=== PATIENT | male | born 1985 | race African-American/Black ===

== ENCOUNTER 2016-06-19 02:42 | Inpatient (IN) | payer OTHER ==
[2016-06-19] VITALS (8 sets, daily range): BP systolic 126–148; BP diastolic 71–93; PULSE 61–95; RESP 16–22; TEMP 97.8–100.7; O2SAT 95–99
[~2016-06-19] VITALS: Ht 175.3 cm; Wt 91.0 kg
[2016-06-19] MEDS ORDERED: SODIUM CHLOR 0.9% 1000 ML INJ 1,000 ML IV SCH (02:54)
[2016-06-19] MEDS ORDERED: SODIUM CHLORIDE 0.9% FLUSH 5 ML FLUSH IVF PRN (03:00)
[2016-06-19] MEDS ORDERED: MORPHINE SULFATE 4 MG/ML INJ IV PUSH ONE (03:00)
[2016-06-19] MEDS ORDERED: ONDANSETRON HCL 4 MG/2 ML VIAL IVP ONE (03:00)
[2016-06-19 03:16] LABS: AUTOMATED NEUTROPHIL # 14.7 TH/MM3 (1.8-7.7); BASOPHIL % 0.3 % (0.0-2.0); EOSINOPHIL % 0.1 % (0.0-4.0); HEMATOCRIT 39.9 % (39.0-51.0); HEMO FLAGS DIFF FINAL; LYMPH % 4.6 % (9.0-44.0); LYMPHOCYTE # 0.8 TH/MM3 (1.0-4.8); MEAN CELL VOLUME 85.2 FL (80.0-100.0); MEAN CORPUSCULAR HEMOGLOBIN 28.7 PG (27.0-34.0); MEAN CORPUSCULAR HGB CONC 33.7 % (32.0-36.0); MONO % 4.6 % (0.0-8.0); NEUT % 90.4 % (16.0-70.0); PLATELET COUNT 247 TH/MM3 (150-450); RED BLOOD COUNT 4.69 MIL/MM3 (4.50-5.90); RED CELL DISTRIBUTION WIDTH 12.7 % (11.6-17.2); WHITE BLOOD COUNT 16.3 TH/MM3 (4.0-11.0)
[2016-06-19 03:26] LABS: APTT (PATIENT) 27.7 SEC (24.3-30.1); PROTHROMBIN TIME - PATIENT 11.1 SEC (9.8-11.6)
[2016-06-19 03:32] LABS: ALT (GPT) 65 U/L (12-78); ANION GAP 8 MEQ/L (5-15); AST (GOT) 37 U/L (15-37); BICARBONATE 27.4 MEQ/L (21.0-32.0); BLOOD UREA NITROGEN 10 MG/DL (7-18); CHLORIDE 99 MEQ/L (98-107); GLOMERULAR FILTRATION RATE 143 ML/MIN (>89); POTASSIUM 4.3 MEQ/L (3.5-5.1); SODIUM (NA) 134 MEQ/L (136-145)
[2016-06-19 03:33] LABS: ALKALINE PHOSPHATASE 95 U/L (45-117); TOTAL BILIRUBIN ADULT 0.6 MG/DL (0.2-1.0)
[2016-06-19] MEDS ORDERED: IOHEXOL 350 MG/ML 10 ML VIAL (for RAD DIAG) IV ONE (03:43)
--- NOTE | 2016-06-19 04:16 | RADRPT ---
EXAM DATE/TIME: 06/19/2016 03:41 [place] COMPARISON: No previous studies available for comparison. INDICATIONS : Right sided abdominal pain X 2 days. IV CONTRAST: 96 cc Omnipaque 350 (iohexol) IV ORAL CONTRAST: No oral contrast ingested. RADIATION DOSE: 11.51 CTDIvol (mGy) MEDICAL HISTORY : None SURGICAL HISTORY : None. ENCOUNTER: Initial ACUITY: 2 days PAIN SCALE: 6/10 LOCATION: abdomen TECHNIQUE: Volumetric scanning of the abdomen and pelvis was performed. Using automated exposure control and ad justment of the mA and/or kV according to patient size, radiation dose was kept as low as reasonably achievable to obtain optimal diagnostic quality images. FINDINGS: LOWER LUNGS: The visualized lower lungs are clear. LIVER: Homogeneous density without lesion. There is no dilation of the biliary tree. No calcified gallston es. SPLEEN: Normal size without lesion. PANCREAS: Haziness in the peripancreatic fatty tissues. KIDNEYS: Normal in size and shape. There is no mass, stone or hydronephrosis. ADRENAL GLANDS: Within normal limits. VASCULAR: There is no aortic aneurysm. BOWEL/MESENTERY: The stomach, small bowel, and colon demonstrate no acute abnormality. There is no free intraperitone al air or fluid. The vermiform appendix is identified and is radiographically normal. ABDOMINAL WALL: Within normal limits. RETROPERITONEUM: There is no lymphadenopathy. Inflammatory stranding tracking down both paracolic gutters BLADDER: No wall thickening or mass. REPRODUCTIVE: Within normal limits. INGUINAL: There is no lymphadenopathy or hernia. MUSCULOSKELETAL: Within normal limits for patient age. CONCLUSION: 1. Haziness of the peripancreatic fatty tissues characteristic of mild pancreatitis. There is some in flammatory stranding tracking down both paracolic gutters as well. 2. The appendix is clearly identified and is radiographically intact. Claude Prakash MD on June 19, 2016 at 4:09 Board Certified Radiologist. This report was verified electronically.
--- NOTE | 2016-06-19 04:21 | PD ---
HPI Chief Complaint: Abdominal Pain Time Seen by Provider: 02:51 Travel History International Travel<30 days: No Contact w/Intl Traveler<30days: No Traveled to known affect area: No History of Present Illness HPI Patient 30-year-old male presents with epigastric and right upper quadrant pain for the past 6 hours. Patient also endorses some nausea and nonbloody and nonbilious emesis. Patient described pain is gradually getting worse. Cannot identify any alleviating or exacerbating factors. Patient states sharp in quality. No fevers no diarrhea no constipation. PFSH Past Medical History Medical History: Denies Significant Hx Diminished Hearing: No Tetanus Vaccination: > 5 Years Influenza Vaccination: No Past Surgical History Surgical History: No Previous Surgery Social History Tobacco Use: No Substance Use: Yes ("pot") Allergies-Medications (Allergen,Severity, Reaction): Coded Allergies: No Known Allergies (Unverified , 06/19/16) Reported Meds & Prescriptions Reported Meds & Active Scripts Active No Active Prescriptions or Reported Medications Review of Systems Except as stated in HPI: all other systems reviewed are Neg Physical Exam Narrative GENERAL: Well-developed well-nourished, appears to be quite painful. SKIN: Warm and dry. HEAD: Atraumatic. Normocephalic. EYES: Pupils equal and round. No scleral icterus. No injection or drainage. ENT: No nasal bleeding or discharge. Mucous membranes pink and moist. NECK: Trachea midline. No JVD. CARDIOVASCULAR: Regular rate and rhythm. No murmur appreciated. RESPIRATORY: No accessory muscle use. Clear to auscultation. Breath sounds equal bilaterally. GASTROINTESTINAL: Abdomen soft, moderately tender in epigastric region, bowel sounds hypoactive., nondistended. Hepatic and splenic margins not palpable. No rebound no percussive tenderness. MUSCULOSKELETAL: No obvious deformities. No clubbing. No cyanosis. No edema. NEUROLOGICAL: Awake and alert. No obvious cranial nerve deficits. Motor grossly within normal limits. Normal speech. PSYCHIATRIC: Appropriate mood and affect; insight and judgment normal. Data Data Last Documented VS Vital Signs Date Time Temp Pulse Resp B/P Pulse Ox O2 Delivery O2 Flow Rate FiO2 06/19/16 02:46 98.0 66 20 127/82 99 Orders Complete Blood Count With Diff (06/19/16 02:54) Comprehensive Metabolic Panel (06/19/16 02:54) Lipase (06/19/16 02:54) Lactic Acid (06/19/16 02:54) Prothrombin Time / Inr (Pt) (06/19/16 02:54) Act Partial Throm Time (Ptt) (06/19/16 02:54) Urinalysis - C+S If Indicated (06/19/16 02:54) Iv Access Insert/Monitor (06/19/16 02:54) Ecg Monitoring (06/19/16 02:54) Oximetry (06/19/16 02:54) Morphine Inj (Morphine Inj) (06/19/16 03:00) Ondansetron Inj (Zofran Inj) (06/19/16 03:00) Sodium Chlor 0.9% 1000 Ml Inj (Ns 1000 M (06/19/16 02:54) Sodium Chloride 0.9% Flush (Ns Flush) (06/19/16 03:00) Ct Abd/Pel W Iv Contrast(Rout) (06/19/16 ) Iohexol 350 Inj (Omnipaque 350 Inj) (06/19/16 03:43) Sodium Chlor 0.9% 1000 Ml Inj (Ns 1000 M (06/19/16 05:00) Alcohol (Ethanol) (06/19/16 04:53) Labs Laboratory Tests Test 06/19/16 03:00 White Blood Count 16.3 TH/MM3 Red Blood Count 4.69 MIL/MM3 Hemoglobin 13.4 GM/DL Hematocrit 39.9 % Mean Corpuscular Volume 85.2 FL Mean Corpuscular Hemoglobin 28.7 PG Mean Corpuscular Hemoglobin 33.7 % Concent Red Cell Distribution Width 12.7 % Platelet Count 247 TH/MM3 Mean Platelet Volume 8.5 FL Neutrophils (%) (Auto) 90.4 % Lymphocytes (%) (Auto) 4.6 % Monocytes (%) (Auto) 4.6 % Eosinophils (%) (Auto) 0.1 % Basophils (%) (Auto) 0.3 % Neutrophils # (Auto) 14.7 TH/MM3 Lymphocytes # (Auto) 0.8 TH/MM3 Monocytes # (Auto) 0.7 TH/MM3 Eosinophils # (Auto) 0.0 TH/MM3 Basophils # (Auto) 0.0 TH/MM3 CBC Comment DIFF FINAL Differential Comment Prothrombin Time 11.1 SEC Prothromb Time International 1.0 RATIO Ratio Activated Partial 27.7 SEC Thromboplast Time Sodium Level 134 MEQ/L Potassium Level 4.3 MEQ/L Chloride Level 99 MEQ/L Carbon Dioxide Level 27.4 MEQ/L Anion Gap 8 MEQ/L Blood Urea Nitrogen 10 MG/DL Creatinine 0.78 MG/DL Estimat Glomerular Filtration 143 ML/MIN Rate Random Glucose 120 MG/DL Lactic Acid Level 1.7 mmol/L Calcium Level 9.0 MG/DL Total Bilirubin 0.6 MG/DL Aspartate Amino Transf 37 U/L (AST/SGOT) Alanine Aminotransferase 65 U/L (ALT/SGPT) Alkaline Phosphatase 95 U/L Total Protein 8.4 GM/DL Albumin 4.4 GM/DL Lipase 587 U/L [facility] Medical Decision Making Medical Screen Exam Complete: Yes Emergency Medical Condition: Yes Differential Diagnosis Pancreatitis, cholecystitis, gastritis, gastroenteritis, dehydration, hypokalemia Narrative Course Patient roomed in emergency department, tenderness favors gastritis versus pancreatitis. Lipase elevated, white blood cell count elevated, 17,[address] examination performed and shows following. Last 24 hours Impressions Abdomen/Pelvis CT 06/19/16 0000 Signed Impressions: Service Date/Time: Sunday, June 19, 2016 03:41 - CONCLUSION: 1. Haziness of the peripancreatic fatty tissues characteristic of mild pancreatitis. There is some inflammatory stranding tracking down both paracolic gutters as well. 2. The appendix is clearly identified and is radiographically intact. Claude Prakash MD Discussed with the patient is young and could consider discharge however he still feeling fairly nauseous. Discussed with him admission to the hospital and he is agreeable. Diagnosis Primary Impression: Pancreatitis Qualified Code: K85.90 - Acute pancreatitis, unspecified complication status, unspecified pancreatitis type Admitting Information Admitting Physician Requests: Admit Scripts No Active Prescriptions or Reported Meds Condition: Stable Praveen Fernandes MD Jun 19, 2016 04:20
[2016-06-19] MEDS ORDERED: SODIUM CHLOR 0.9% 1000 ML INJ 1,000 ML IV ONE (05:00)
[2016-06-19] MEDS ORDERED: ACETAMINOPHEN 325 MG TAB PO PRN (05:15)
[2016-06-19] MEDS ORDERED: SODIUM CHLORIDE 0.9% FLUSH 5 ML FLUSH FLUSH PRN (05:15)
[2016-06-19] MEDS ORDERED: BISACODYL 10 MG SUPP PR PRN (05:15)
--- NOTE | 2016-06-19 05:18 | HHI.HP ---
[facility] No Primary Care Physician Admission Diagnosis Pancreatitis. Diagnoses: (1) Pancreatitis Diagnosis: Principal (2) Abdominal pain Diagnosis: Principal (3) Leukocytosis Diagnosis: Principal Travel History International Travel<30 Days: No Contact w/Intl Traveler <30 Da: No Traveled to Known Affected Are: No History of Present Illness This is a 30-year-old male with no significant PMH who presents the ER with complaints of severe epigastric abdominal pain in addition to multiple episodes of nausea and vomiting starting last night. States pain has gotten progressively worse in the last 2-3 hours, unable to take PO. Denies fever, chills, cough or diarrhea. On arrival, BP 127/82, HR 66, O2 sat 99% on RA, Afebrile. WBC 16.3. Chemistry essentially unremarkable. Lactic Acid 1.7. Lipase 587. INR 1.0. Alcohol pending. CT Abd/Pelvis w/ peripancreatic fatty tissue characteristic of mild pancreatitis w/ some inflammatory stranding down both paracolic gutters. S/p Zofran/Morphine in ER w/ some improvement. Review of Systems Except as stated in HPI: all other systems reviewed are Neg ROS: 14 point review of systems otherwise negative. Past Family Social History Past Medical History PMH: None Past Surgical History PAST SURGICAL HISTORY: None Allergies: Coded Allergies: No Known Allergies (Unverified , 06/19/16) Family History PAST FAMILY HISTORY: Reviewed. No h/o DM or CAD Social History PAST SOCIAL HISTORY: Denies alcohol or tobacco. Smokes Marijuana Physical Exam Vital Signs Vital Signs Date Time Temp Pulse Resp B/P Pulse Ox O2 Delivery O2 Flow Rate FiO2 06/19/16 02:46 98.0 66 20 127/82 99 Physical Exam PE: GENERAL: Young male in no acute distress. HEENT: PERRLA, EOMI. No scleral icterus or conjunctival pallor. No lid lag or facial droop. CARDIOVASCULAR: Regular rate and rhythm. No obvious murmurs to auscultation. No chest tenderness to palpation. RESPIRATORY: No obvious rhonchi or wheezing. Clear to auscultation. Breath sounds equal bilaterally. GASTROINTESTINAL: Abdomen soft, epigastric tenderness to palpation, nondistended. BS normal. MUSCULOSKELETAL: Extremities without clubbing, cyanosis, or edema. No obvious deformities. NEUROLOGICAL: Awake, alert and oriented x4. No focal neurologic deficits. Moving both upper and lower extremities spontaneously. Laboratory Laboratory Tests Test 06/19/16 03:00 White Blood Count 16.3 Red Blood Count 4.69 Hemoglobin 13.4 Hematocrit 39.9 Mean Corpuscular Volume 85.2 Mean Corpuscular Hemoglobin 28.7 Mean Corpuscular Hemoglobin 33.7 Concent Red Cell Distribution Width 12.7 Platelet Count 247 Mean Platelet Volume 8.5 Neutrophils (%) (Auto) 90.4 Lymphocytes (%) (Auto) 4.6 Monocytes (%) (Auto) 4.6 Eosinophils (%) (Auto) 0.1 Basophils (%) (Auto) 0.3 Neutrophils # (Auto) 14.7 Lymphocytes # (Auto) 0.8 Monocytes # (Auto) 0.7 Eosinophils # (Auto) 0.0 Basophils # (Auto) 0.0 CBC Comment DIFF FINAL Differential Comment Prothrombin Time 11.1 Prothromb Time International 1.0 Ratio Activated Partial 27.7 Thromboplast Time Sodium Level 134 Potassium Level 4.3 Chloride Level 99 Carbon Dioxide Level 27.4 Anion Gap 8 Blood Urea Nitrogen 10 Creatinine 0.78 Estimat Glomerular Filtration 143 Rate Random Glucose 120 Lactic Acid Level 1.7 Calcium Level 9.0 Total Bilirubin 0.6 Aspartate Amino Transf 37 (AST/SGOT) Alanine Aminotransferase 65 (ALT/SGPT) Alkaline Phosphatase 95 Total Protein 8.4 Albumin 4.4 Lipase 587 Result Diagram: 06/19/16 0300 06/19/16 0300 Assessment and Plan Problem List: (1) Pancreatitis ICD Code: K85.90 Status: Acute (2) Abdominal pain ICD Code: R10.9 Status: Acute (3) Leukocytosis ICD Code: D72.829 Status: Acute Assessment and Plan A/P: 1. Acute Pancreatitis: c/o acute onset of severe abdominal pain, nausea/ vomiting few hours prior to arrival, denies diarrhea/fever. Lipase 589. CT Abd /Pelvis w/ peripancreatic fatty tissue characteristic of mild pancreatitis and inflammatory stranding tracking down both paracolic gutters, images reviewed by me. Clear liquids, advance diet as tolerated, IVF, Protonix IV, analgesics/ antiemetics as needed, start Zosyn in light of leukocytosis and findings on CT. Alcohol level pending. LFTs normal. 2. Abdominal Pain: Secondary to above, analgesics/antiemetics as needed. 3. Leukocytosis: WBC 16 w/ shift, in light of pancreatitis on imaging will start on IV Zosyn, repeat labs in am. 4. DVT Prophylaxis: SCD/Teds. 5. Social work for d/c planning as needed. 6. Case discussed w/ ER physician at length. Physician Certification 2 Midnight Certification Type: Admission for Inpatient Services Order for Inpatient Services The services are ordered in accordance with Medicare regulations or non- Medicare payer requirements, as applicable. In the case of services not specified as inpatient-only, they are appropriately provided as inpatient services in accordance with the 2-midnight benchmark. Estimated LOS (days): 2 days is the estimated time the patient will need to remain in the hospital, assuming treatment plan goals are met and no additional complications. Post-Hospital Plan: Not yet determined Problem Qualifiers (1) Pancreatitis: Qualified Code: K85.90 - Acute pancreatitis, unspecified complication status, unspecified pancreatitis type Padmini Doherty MD Jun 19, 2016 05:18
[2016-06-19] MEDS: SODIUM CHLOR 0.9% 1000 ML INJ 1,000 ML IV SCH ×2 (05:54→14:41)
[2016-06-19] MEDS: PIPERACIL-TAZO 4.5 GM PREMIX 100 ML IV SCH ×3 (05:55→16:51)
[2016-06-19] MEDS: PANTOPRAZOLE SODIUM 40 MG VIAL IV PUSH SCH ×2 (05:55→16:51)
[2016-06-19 05:58] LABS: BLOOD, URINE NEG (NEG); COMMENT (UR) CULT NOT INDICATED; CULTURE IF INDICATED CULT NOT INDICATED; GLUCOSE,URINE NEG (NEG); KETONE, URINE 40 mg/dL (NEG); MUCUS URINE FEW /lpf (OCC); NITRITE,URINE NEG (NEG); URINE COLOR LIGHT-YELLOW (YELLW/STRAW)
[2016-06-19] MEDS: SODIUM CHLORIDE 0.9% FLUSH 5 ML FLUSH FLUSH SCH ×2 (07:29→20:33)
[2016-06-19] MEDS: MORPHINE SULFATE 4 MG/ML INJ IV PRN ×2 (08:09→12:13)
[2016-06-19] MEDS: ONDANSETRON HCL 4 MG/2 ML VIAL IVP PRN (08:09)
[2016-06-20] VITALS (7 sets, daily range): BP systolic 120–125; BP diastolic 66–78; PULSE 91–105; RESP 16–20; TEMP 98.8–100.5; O2SAT 95–96
[2016-06-20] MEDS: PIPERACIL-TAZO 4.5 GM PREMIX 100 ML IV SCH ×4 (00:09→16:48)
[2016-06-20] MEDS: MORPHINE SULFATE 4 MG/ML INJ IV PRN ×2 (00:11→03:35)
[2016-06-20] MEDS: SODIUM CHLOR 0.9% 1000 ML INJ 1,000 ML IV SCH ×4 (06:00→22:07)
[2016-06-20] MEDS: PANTOPRAZOLE SODIUM 40 MG VIAL IV PUSH SCH ×2 (06:04→16:48)
[2016-06-20] MEDS: SODIUM CHLORIDE 0.9% FLUSH 5 ML FLUSH FLUSH SCH ×2 (08:46→20:31)
[2016-06-20 09:27] LABS: AUTOMATED NEUTROPHIL # 12.8 TH/MM3 (1.8-7.7); BASOPHIL % 0.3 % (0.0-2.0); EOSINOPHIL % 0.1 % (0.0-4.0); HEMATOCRIT 38.3 % (39.0-51.0); HEMO FLAGS DIFF FINAL; LYMPH % 4.1 % (9.0-44.0); LYMPHOCYTE # 0.6 TH/MM3 (1.0-4.8); MEAN CELL VOLUME 85.8 FL (80.0-100.0); MEAN CORPUSCULAR HEMOGLOBIN 28.6 PG (27.0-34.0); MEAN CORPUSCULAR HGB CONC 33.4 % (32.0-36.0); MONO % 7.7 % (0.0-8.0); NEUT % 87.8 % (16.0-70.0); PLATELET COUNT 232 TH/MM3 (150-450); RED BLOOD COUNT 4.47 MIL/MM3 (4.50-5.90); RED CELL DISTRIBUTION WIDTH 12.9 % (11.6-17.2); WHITE BLOOD COUNT 14.6 TH/MM3 (4.0-11.0)
[2016-06-20 09:59] LABS: ALKALINE PHOSPHATASE 77 U/L (45-117); ALT (GPT) 34 U/L (12-78); ANION GAP 9 MEQ/L (5-15); AST (GOT) 10 U/L (15-37); BICARBONATE 26.2 MEQ/L (21.0-32.0); BLOOD UREA NITROGEN 5 MG/DL (7-18); CHLORIDE 100 MEQ/L (98-107); GLOMERULAR FILTRATION RATE 124 ML/MIN (>89); POTASSIUM 3.5 MEQ/L (3.5-5.1); SODIUM (NA) 135 MEQ/L (136-145); TOTAL BILIRUBIN ADULT 1.1 MG/DL (0.2-1.0)
--- NOTE | 2016-06-20 17:05 | HHI.PR ---
Subjective Remarks This is a pleasant 30 y/o male with no significant past medical history, who came to ER with severe epigastric abdominal pain, multiple episodes of Nausea and vomit, denies fever, chills no nausea, vomit or diarrhea, Lactic acid was 1.7, Lipase 587, the patient states he drinks alcohol in excess, CT Abd/Pelvis w/ peripancreatic fatty tissue characteristic of mild pancreatitis w/ some inflammatory stranding down both paracolic gutters. he is improving condition slowly, today Lipase 215. eating better today. Objective Vital Signs Date Time Temp Pulse Resp B/P Pulse Ox O2 Delivery O2 Flow Rate FiO2 06/20/16 12:00 99.7 105 18 120/72 95 06/20/16 08:00 99.2 103 18 123/75 96 06/20/16 06:10 98 06/20/16 04:00 99.8 101 18 125/68 95 06/20/16 00:00 100.4 97 16 123/78 96 06/19/16 23:51 18 06/19/16 20:00 100.7 95 22 133/71 96 I/O 06/19/16 06/19/16 06/19/16 06/20/16 06/20/16 06/20/16 07:00 15:00 23:00 07:00 15:00 23:00 Intake Total 1091 ml 1282 ml 480 ml Output Total 400 ml 1002 ml 400 ml Balance -400 ml 89 ml -400 ml 1282 ml 480 ml Intake Oral 140 ml 480 ml IV Total 951 ml 1282 ml Output Urine Total 400 ml 1002 ml 400 ml # Voids 1 3 # Bowel Movements 0 0 Result Diagram: 06/20/16 0853 06/20/16 0853 Imaging Last Impressions Abdomen/Pelvis CT 06/19/16 0000 Signed Impressions: Service Date/Time: Sunday, June 19, 2016 03:41 - CONCLUSION: 1. Haziness of the peripancreatic fatty tissues characteristic of mild pancreatitis. There is some inflammatory stranding tracking down both paracolic gutters as well. 2. The appendix is clearly identified and is radiographically intact. Claude Prakash MD Procedures No procedures performed Other Results Laboratory Tests Test 06/19/16 06/19/16 06/20/16 03:00 05:50 08:53 Prothrombin Time 11.1 SEC Prothromb Time International 1.0 RATIO Ratio Activated Partial 27.7 SEC Thromboplast Time Lactic Acid Level 1.7 mmol/L Ethyl Alcohol Level LESS THAN 3 MG/DL Urine Color LIGHT-YELLOW Urine Turbidity CLEAR Urine pH 8.0 Urine Specific [place] 1.047 Urine Protein NEG mg/dL Urine Glucose (UA) NEG mg/dL Urine Ketones 40 mg/dL Urine Occult Blood NEG Urine Nitrite NEG Urine Bilirubin NEG Urine Urobilinogen LESS THAN 2.0 MG/DL Urine Leukocyte Esterase NEG Urine RBC 1 /hpf Urine WBC 1 /hpf Urine Mucus FEW /lpf Microscopic Urinalysis Comment CULT NOT INDICATED White Blood Count 14.6 TH/MM3 Red Blood Count 4.47 MIL/MM3 Hemoglobin 12.8 GM/DL Hematocrit 38.3 % Mean Corpuscular Volume 85.8 FL Mean Corpuscular Hemoglobin 28.6 PG Mean Corpuscular Hemoglobin 33.4 % Concent Red Cell Distribution Width 12.9 % Platelet Count 232 TH/MM3 Mean Platelet Volume 8.4 FL Neutrophils (%) (Auto) 87.8 % Lymphocytes (%) (Auto) 4.1 % Monocytes (%) (Auto) 7.7 % Eosinophils (%) (Auto) 0.1 % Basophils (%) (Auto) 0.3 % Neutrophils # (Auto) 12.8 TH/MM3 Lymphocytes # (Auto) 0.6 TH/MM3 Monocytes # (Auto) 1.1 TH/MM3 Eosinophils # (Auto) 0.0 TH/MM3 Basophils # (Auto) 0.0 TH/MM3 CBC Comment DIFF FINAL Differential Comment Sodium Level 135 MEQ/L Potassium Level 3.5 MEQ/L Chloride Level 100 MEQ/L Carbon Dioxide Level 26.2 MEQ/L Anion Gap 9 MEQ/L Blood Urea Nitrogen 5 MG/DL Creatinine 0.88 MG/DL Estimat Glomerular Filtration 124 ML/MIN Rate Random Glucose 105 MG/DL Calcium Level 8.4 MG/DL Total Bilirubin 1.1 MG/DL Aspartate Amino Transf 10 U/L (AST/SGOT) Alanine Aminotransferase 34 U/L (ALT/SGPT) Alkaline Phosphatase 77 U/L Total Protein 7.5 GM/DL Albumin 3.2 GM/DL Lipase 215 U/L Objective Remarks GENERAL: Young male in no acute distress. HEENT: PERRLA, EOMI. No scleral icterus or conjunctival pallor. No lid lag or facial droop. CARDIOVASCULAR: Regular rate and rhythm. No obvious murmurs to auscultation. No chest tenderness to palpation. RESPIRATORY: No obvious rhonchi or wheezing. Clear to auscultation. Breath sounds equal bilaterally. GASTROINTESTINAL: Abdomen soft, epigastric tenderness to palpation, nondistended. BS normal. MUSCULOSKELETAL: Extremities without clubbing, cyanosis, or edema. No obvious deformities. NEUROLOGICAL: Awake, alert and oriented x4. No focal neurologic deficits. Moving both upper and lower extremities spontaneously. Medications and IVs Current Medications Medications (Trade) Dose Ordered Sig/Kathy Route Start Time Stop Time Status Last Admin IV Flush 2 ml 2 ml UNSCH PRN IVF 06/19/16 03:00 (Zosyn 4.5 Gm Premix) 100 ml @ 200 mls/hr Q6H IV 06/19/16 06:00 06/20/16 16:48 Pantoprazole Sodium 40 mg 40 mg Q12H IV PUSH 06/19/16 06:00 06/20/16 16:48 (NS 1000 ml Inj) 1,000 ml @ 100 mls/hr Q10H IV 06/19/16 05:07 06/20/16 11:07 (NS Flush) 2 ml UNSCH PRN FLUSH 06/19/16 05:15 (NS Flush) 2 ml BID FLUSH 06/19/16 09:00 06/19/16 07:29 (Zofran Inj) 4 mg Q6H PRN IVP 06/19/16 05:15 06/19/16 08:09 (Dulcolax Supp) 10 mg DAILY PRN CO 06/19/16 05:15 (Tylenol) 650 mg Q6H PRN PO 06/19/16 05:15 06/20/16 16:47 (Morphine Inj) 2 mg Q3H PRN IV 06/19/16 05:15 06/20/16 03:35 (Roxicodone) 5 mg Q4H PRN PO 06/19/16 05:15 06/20/16 11:31 (Ativan) 0.5 mg Q8HR PO 06/20/16 22:00 A/P Problem List: (1) Leukocytosis ICD Code: D72.829 (2) Pancreatitis ICD Code: K85.90 (3) Abdominal pain ICD Code: R10.9 Assessment and Plan 1. Acute Pancreatitis: came to ER wtih Acute onset of severe abdominal pain, improving nausea and vomit. Lipase on admission was 589, probable related to alcohol abuse. has leukocytosis improving on empiric antibiotic management probable Colitis. 2. Abdominal Pain: Improving 3. Intractable Nausea and vomit improving 4. Hypokalemia given replacement and following DVT prophylaxis with SCDs Encourage activity Discharge Planning Expected by tomorrow. Problem Qualifiers (1) Pancreatitis: Qualified Code: K85.90 - Acute pancreatitis, unspecified complication status, unspecified pancreatitis type Errol Rainey MD Jun 20, 2016 17:05
[2016-06-20] MEDS ORDERED: POTASSIUM CHLORIDE 20 MEQ CONTROLLED RELEASE TAB PO ONE (19:15)
[2016-06-20] MEDS: LORazepam 0.5 MG TAB PO SCH (22:07)
[2016-06-21] VITALS: BP 115/74; PULSE 94; RESP 20; TEMP 98.7; O2SAT 94
[2016-06-21] MEDS: PIPERACIL-TAZO 4.5 GM PREMIX 100 ML IV SCH ×4 (00:16→16:39)
[2016-06-21 04:00] VITALS: BP 130/82; PULSE 100; RESP 20; TEMP 98.6; O2SAT 97
[2016-06-21] MEDS: PANTOPRAZOLE SODIUM 40 MG VIAL IV PUSH SCH ×2 (06:08→16:39)
[2016-06-21] MEDS: LORazepam 0.5 MG TAB PO SCH ×3 (06:08→20:22)
[2016-06-21 07:30] LABS: AUTOMATED NEUTROPHIL # 15.4 TH/MM3 (1.8-7.7); BASOPHIL # 0.1 TH/MM3 (0-0.2); BASOPHIL % 0.3 % (0.0-2.0); EOSINOPHIL # 0.1 TH/MM3 (0-0.4); EOSINOPHIL % 0.3 % (0.0-4.0); HEMATOCRIT 38.8 % (39.0-51.0); HEMO FLAGS DIFF FINAL; LYMPH % 4.1 % (9.0-44.0); LYMPHOCYTE # 0.7 TH/MM3 (1.0-4.8); MEAN CELL VOLUME 85.9 FL (80.0-100.0); MEAN CORPUSCULAR HEMOGLOBIN 28.6 PG (27.0-34.0); MEAN CORPUSCULAR HGB CONC 33.3 % (32.0-36.0); MONO % 7.9 % (0.0-8.0); NEUT % 87.4 % (16.0-70.0); PLATELET COUNT 259 TH/MM3 (150-450); RED BLOOD COUNT 4.52 MIL/MM3 (4.50-5.90); WHITE BLOOD COUNT 17.7 TH/MM3 (4.0-11.0)
[2016-06-21 07:55] LABS: BICARBONATE 25.1 MEQ/L (21.0-32.0); POTASSIUM 3.5 MEQ/L (3.5-5.1)
[2016-06-21 08:00] VITALS: BP 124/79; PULSE 93; RESP 20; TEMP 98.9; O2SAT 96
[2016-06-21] MEDS: SODIUM CHLORIDE 0.9% FLUSH 5 ML FLUSH FLUSH SCH ×2 (09:00→20:19)
[2016-06-21] MEDS: ONDANSETRON HCL 4 MG/2 ML VIAL IVP PRN (09:30)
[2016-06-21] MEDS: MORPHINE SULFATE 4 MG/ML INJ IV PRN (11:57)
[2016-06-21 12:00] VITALS: BP 124/81; PULSE 83; RESP 20; TEMP 98.3; O2SAT 95
--- NOTE | 2016-06-21 13:57 | HHI.PR ---
Subjective Remarks This is a pleasant 30 y/o male with no significant past medical history, who came to ER with severe epigastric abdominal pain, multiple episodes of Nausea and vomit, denies fever, chills no nausea, vomit or diarrhea, Lactic acid was 1.7, Lipase 587, the patient states he drinks alcohol in excess, CT Abd/Pelvis w/ peripancreatic fatty tissue characteristic of mild pancreatitis w/ some inflammatory stranding down both paracolic gutters. Patient stable but continue with nausea and in the morning with Vomit, continue with abdominal pain asked for GI specialist consult, not improving condition and he wants a GI specialist on the case. Objective Vital Signs Date Time Temp Pulse Resp B/P Pulse Ox O2 Delivery O2 Flow Rate FiO2 06/21/16 04:00 98.6 100 20 130/82 97 06/21/16 00:00 98.7 94 20 115/74 94 06/20/16 20:00 98.8 94 20 123/69 96 06/20/16 16:00 100.5 91 18 122/66 96 I/O 06/20/16 06/20/16 06/20/16 06/21/16 06/21/16 06/21/16 07:00 15:00 23:00 07:00 15:00 23:00 Intake Total 1282 ml 480 ml 320 ml 220 ml Output Total 500 ml 500 ml Balance 1282 ml 480 ml -180 ml -280 ml Intake Oral 480 ml 320 ml 220 ml IV Total 1282 ml Output Urine Total 500 ml 500 ml # Voids 3 # Bowel Movements 0 0 Result Diagram: 06/21/16 0710 06/21/16 0710 Imaging Last Impressions Abdomen/Pelvis CT 06/19/16 0000 Signed Impressions: Service Date/Time: Sunday, June 19, 2016 03:41 - CONCLUSION: 1. Haziness of the peripancreatic fatty tissues characteristic of mild pancreatitis. There is some inflammatory stranding tracking down both paracolic gutters as well. 2. The appendix is clearly identified and is radiographically intact. Claude Prakash MD Procedures No procedures performed Other Results Laboratory Tests Test 06/19/16 06/19/16 06/20/16 06/21/16 03:00 05:50 08:53 07:10 Prothrombin Time 11.1 SEC Prothromb Time International 1.0 RATIO Ratio Activated Partial 27.7 SEC Thromboplast Time Lactic Acid Level 1.7 mmol/L Ethyl Alcohol Level LESS THAN 3 MG/DL Urine Color LIGHT-YELLOW Urine Turbidity CLEAR Urine pH 8.0 Urine Specific [place] 1.047 Urine Protein NEG mg/dL Urine Glucose (UA) NEG mg/dL Urine Ketones 40 mg/dL Urine Occult Blood NEG Urine Nitrite NEG Urine Bilirubin NEG Urine Urobilinogen LESS THAN 2.0 MG/DL Urine Leukocyte Esterase NEG Urine RBC 1 /hpf Urine WBC 1 /hpf Urine Mucus FEW /lpf Microscopic Urinalysis Comment CULT NOT INDICATED Total Bilirubin 1.1 MG/DL Aspartate Amino Transf 10 U/L (AST/SGOT) Alanine Aminotransferase 34 U/L (ALT/SGPT) Alkaline Phosphatase 77 U/L Total Protein 7.5 GM/DL Albumin 3.2 GM/DL Lipase 215 U/L White Blood Count 17.7 TH/MM3 Red Blood Count 4.52 MIL/MM3 Hemoglobin 12.9 GM/DL Hematocrit 38.8 % Mean Corpuscular Volume 85.9 FL Mean Corpuscular Hemoglobin 28.6 PG Mean Corpuscular Hemoglobin 33.3 % Concent Red Cell Distribution Width 13.0 % Platelet Count 259 TH/MM3 Mean Platelet Volume 8.4 FL Neutrophils (%) (Auto) 87.4 % Lymphocytes (%) (Auto) 4.1 % Monocytes (%) (Auto) 7.9 % Eosinophils (%) (Auto) 0.3 % Basophils (%) (Auto) 0.3 % Neutrophils # (Auto) 15.4 TH/MM3 Lymphocytes # (Auto) 0.7 TH/MM3 Monocytes # (Auto) 1.4 TH/MM3 Eosinophils # (Auto) 0.1 TH/MM3 Basophils # (Auto) 0.1 TH/MM3 CBC Comment DIFF FINAL Differential Comment Sodium Level 134 MEQ/L Potassium Level 3.5 MEQ/L Chloride Level 99 MEQ/L Carbon Dioxide Level 25.1 MEQ/L Anion Gap 10 MEQ/L Blood Urea Nitrogen 8 MG/DL Creatinine 0.84 MG/DL Estimat Glomerular Filtration 131 ML/MIN Rate Random Glucose 116 MG/DL Calcium Level 8.8 MG/DL Magnesium Level 2.2 MG/DL Objective Remarks GENERAL: Young male in no acute distress. HEENT: PERRLA, EOMI. No scleral icterus or conjunctival pallor. No lid lag or facial droop. CARDIOVASCULAR: Regular rate and rhythm. No obvious murmurs to auscultation. No chest tenderness to palpation. RESPIRATORY: No obvious rhonchi or wheezing. Clear to auscultation. Breath sounds equal bilaterally. GASTROINTESTINAL: Abdomen soft, epigastric tenderness to palpation, generalized distention. MUSCULOSKELETAL: Extremities without clubbing, cyanosis, or edema. No obvious deformities. NEUROLOGICAL: Awake, alert and oriented x4. No focal neurologic deficits. Moving both upper and lower extremities spontaneously. Medications and IVs Current Medications Medications (Trade) Dose Ordered Sig/Kathy Route Start Time Stop Time Status Last Admin IV Flush 2 ml 2 ml UNSCH PRN IVF 06/19/16 03:00 (Zosyn 4.5 Gm Premix) 100 ml @ 200 mls/hr Q6H IV 06/19/16 06:00 06/21/16 11:56 Pantoprazole Sodium 40 mg 40 mg Q12H IV PUSH 06/19/16 06:00 06/21/16 06:08 (NS 1000 ml Inj) 1,000 ml @ 100 mls/hr Q10H IV 06/19/16 05:07 06/20/16 22:07 (NS Flush) 2 ml UNSCH PRN FLUSH 06/19/16 05:15 (NS Flush) 2 ml BID FLUSH 06/19/16 09:00 06/21/16 09:00 (Zofran Inj) 4 mg Q6H PRN IVP 06/19/16 05:15 06/21/16 09:30 (Dulcolax Supp) 10 mg DAILY PRN [place] 06/19/16 05:15 (Tylenol) 650 mg Q6H PRN PO 06/19/16 05:15 06/20/16 16:47 (Morphine Inj) 2 mg Q3H PRN IV 06/19/16 05:15 06/21/16 11:57 (Roxicodone) 5 mg Q4H PRN PO 06/19/16 05:15 06/20/16 22:07 (Ativan) 0.5 mg Q8HR PO 06/20/16 22:00 06/21/16 06:08 A/P Problem List: (1) Leukocytosis ICD Code: D72.829 (2) Pancreatitis ICD Code: K85.90 (3) Abdominal pain ICD Code: R10.9 Assessment and Plan 1. Acute Pancreatitis: Acute onset of Severe abdominal pain, Nausea and vomit , continue with this morning had Nausea and vomit again after he was improving yesterday, he wants to get GI specialist consult I agree, continue antibiotics Zosyn possible Colitis , continue antibiotics gastric protection, added Carafate, 2. Leukocytosis worsening but afebrile. continue antibiotics by now and follow WBC count 3. Intractable nausea and vomit, worsening today. GI specialist consult 4. Hypokalemia replaced. DVT prophylaxis he is all the time in bed and asking for pain medicines started on Lovenox to avoid complications Discharge Planning awaiting final recommendations by GI specialist Problem Qualifiers (1) Pancreatitis: Qualified Code: K85.90 - Acute pancreatitis, unspecified complication status, unspecified pancreatitis type Errol Rainey MD Jun 21, 2016 13:57
[2016-06-21] MEDS: ENOXAPARIN SODIUM 40 MG/0.4 ML SYRINGE SQ SCH ×2 (15:00→16:37)
--- NOTE | 2016-06-21 15:59 | PD.CONS ---
HPI History of Present Illness This is a 30 year old AA male without significant PMH who presents the ER with complaints of severe epigastric abdominal pain associated with multiple episodes of nausea and vomiting started Sunday night after eating at [employer]. Initially, he thought this was gas pain, he tried to have a BM, but couldn't, then he tried to sleep it off, but started vomiting, and pain continued to escalate, wasn't able to tolerate any PO intake, so he came to the ED for further evaluation. Denies fever, chills, diarrhea or hematochezia. On arrival WBC 16.3. Chemistry essentially unremarkable. Lactic Acid 1.7. Lipase 587. INR 1.0. Alcohol < 3. CT Abd/Pelvis w/ peripancreatic fatty tissue characteristic of mild pancreatitis w/ some inflammatory stranding down both paracolic gutters. This is first episode. he drinks 4 times a week, this varies from 1-3 drinks at one time. Denies any herbal supplement, denies NSAIDs use. He admits to intermittent use of Marijuana. Currently, patient still with bloating and abdomen discomfort, lipase normalized. PFSH Past Medical History PMH: None Past Surgical History PAST SURGICAL HISTORY: None Coded Allergies: Shellfish (Verified Allergy, Severe, swelling, 06/19/16) Medications Current Medications Medications (Trade) Dose Ordered Sig/Kathy Route Start Time Stop Time Status Last Admin IV Flush 2 ml 2 ml UNSCH PRN IVF 06/19/16 03:00 (Zosyn 4.5 Gm Premix) 100 ml @ 200 mls/hr Q6H IV 06/19/16 06:00 06/21/16 16:39 Pantoprazole Sodium 40 mg 40 mg Q12H IV PUSH 06/19/16 06:00 06/21/16 16:39 (NS 1000 ml Inj) 1,000 ml @ 100 mls/hr Q10H IV 06/19/16 05:07 06/21/16 16:39 (NS Flush) 2 ml UNSCH PRN FLUSH 06/19/16 05:15 (NS Flush) 2 ml BID FLUSH 06/19/16 09:00 06/21/16 09:00 (Zofran Inj) 4 mg Q6H PRN IVP 06/19/16 05:15 06/21/16 09:30 (Dulcolax Supp) 10 mg DAILY PRN [place] 06/19/16 05:15 (Tylenol) 650 mg Q6H PRN PO 06/19/16 05:15 06/20/16 16:47 (Morphine Inj) 2 mg Q3H PRN IV 06/19/16 05:15 06/21/16 11:57 (Roxicodone) 5 mg Q4H PRN PO 06/19/16 05:15 06/20/16 22:07 (Ativan) 0.5 mg Q8HR PO 06/20/16 22:00 06/21/16 14:00 (Lovenox Inj) 40 mg Q24H SQ 06/21/16 15:00 06/21/16 16:37 (Carafate) 1 gm ACHS PO 06/21/16 16:00 06/21/16 16:37 Family History no family hx of colon cancer or pancreatitis Social History He drinks alcohol 4 times a week, ranges from 1-3 drinks. No tobacco. Smokes Marijuana GI Exam Vitals I&O Vital Signs Date Time Temp Pulse Resp B/P Pulse Ox O2 Delivery O2 Flow Rate FiO2 06/21/16 12:00 98.3 83 20 124/81 95 06/21/16 08:00 98.9 93 20 124/79 96 06/21/16 04:00 98.6 100 20 130/82 97 06/21/16 00:00 98.7 94 20 115/74 94 06/20/16 20:00 98.8 94 20 123/69 96 06/20/16 16:00 100.5 91 18 122/66 96 I/O 06/20/16 06/20/16 06/20/16 06/21/16 06/21/16 06/21/16 07:00 15:00 23:00 07:00 15:00 23:00 Intake Total 1282 ml 480 ml 320 ml 220 ml Output Total 500 ml 500 ml Balance 1282 ml 480 ml -180 ml -280 ml Intake Oral 480 ml 320 ml 220 ml IV Total 1282 ml Output Urine Total 500 ml 500 ml # Voids 3 # Bowel Movements 0 0 Imaging Last Impressions Abdomen/Pelvis CT 06/19/16 0000 Signed Impressions: Service Date/Time: Sunday, June 19, 2016 03:41 - CONCLUSION: 1. Haziness of the peripancreatic fatty tissues characteristic of mild pancreatitis. There is some inflammatory stranding tracking down both paracolic gutters as well. 2. The appendix is clearly identified and is radiographically intact. Claude Prakash MD Laboratory Test 06/21/16 07:10 White Blood Count 17.7 TH/MM3 Red Blood Count 4.52 MIL/MM3 Hemoglobin 12.9 GM/DL Hematocrit 38.8 % Mean Corpuscular Volume 85.9 FL Mean Corpuscular Hemoglobin 28.6 PG Mean Corpuscular Hemoglobin 33.3 % Concent Red Cell Distribution Width 13.0 % Platelet Count 259 TH/MM3 Mean Platelet Volume 8.4 FL Neutrophils (%) (Auto) 87.4 % Lymphocytes (%) (Auto) 4.1 % Monocytes (%) (Auto) 7.9 % Eosinophils (%) (Auto) 0.3 % Basophils (%) (Auto) 0.3 % Neutrophils # (Auto) 15.4 TH/MM3 Lymphocytes # (Auto) 0.7 TH/MM3 Monocytes # (Auto) 1.4 TH/MM3 Eosinophils # (Auto) 0.1 TH/MM3 Basophils # (Auto) 0.1 TH/MM3 CBC Comment DIFF FINAL Differential Comment Sodium Level 134 MEQ/L Potassium Level 3.5 MEQ/L Chloride Level 99 MEQ/L Carbon Dioxide Level 25.1 MEQ/L Anion Gap 10 MEQ/L Blood Urea Nitrogen 8 MG/DL Creatinine 0.84 MG/DL Estimat Glomerular Filtration 131 ML/MIN Rate Random Glucose 116 MG/DL Calcium Level 8.8 MG/DL Magnesium Level 2.2 MG/DL Physical Examination HEENT: normocephalic; atraumatic; no jaundice. Throat is clear. NECK: Neck is supple, no JVD, no lymphadenopathy. CHEST: Chest is clear to auscultation and percussion. CARDIAC: Regular rate and rhythm with no murmur gallop or rubs. ABDOMEN: Soft, nondistended, diffused tenderness; no hepatosplenomegaly; bowel sounds are present in all four quadrants. EXTREMITIES: No clubbing, cyanosis, or edema. SKIN: Normal; no rash; no jaundice. 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 Assessment and Plan Plan - Acute pancreatitis/first episode- possibly alcohol related. severe epigastric abdominal pain associated with multiple episodes of nausea and vomiting started Sunday night after eating at [employer]. Initially, he thought this was gas pain, he tried to have a BM, but couldn't, then he tried to sleep it off, but started vomiting, and pain continued to escalate, wasn't able to tolerate any PO intake, so he came to the ED for further evaluation. Denies fever, chills, diarrhea or hematochezia. On arrival WBC 16.3. Chemistry essentially unremarkable. Lactic Acid 1.7. Lipase 587. INR 1.0. Alcohol < 3. CT Abd/Pelvis w/ peripancreatic fatty tissue characteristic of mild pancreatitis w/ some inflammatory stranding down both paracolic gutters. This is first episode. he drinks 4 times a week, this varies from 1-3 drinks at one time. Denies any herbal supplement, denies NSAIDs use. He admits to intermittent use of Marijuana. Currently, patient still with bloating and abdomen discomfort, lipase normalized. - Leukocytosis- WBC 17.7, afebrile, Zosyn - Alcohol use - he drinks 4 times a week, this varies from 1-3 drinks at one time.counseled on cessation Plan: - Full liquids - EGD in am to R/O PUD - Obtain consents - NPO mn - IV hydration - Antiemetics - Pain meds - Supportive care - Patient seen and examined by Dr. Jama and myself and this note is written on his behalf. Amelie Melo Jun 21, 2016 15:59
[2016-06-21 16:00] VITALS: BP 130/83; PULSE 82; RESP 20; TEMP 97.9; O2SAT 98
[2016-06-21] MEDS: SUCRALFATE 1 GM TAB PO SCH ×2 (16:37→20:22)
[2016-06-21] MEDS: SODIUM CHLOR 0.9% 1000 ML INJ 1,000 ML IV SCH (16:39)
[2016-06-21 21:00] VITALS: BP 131/82; PULSE 90; RESP 17; TEMP 98.8; O2SAT 97
[2016-06-22] VITALS: BP 125/80; PULSE 89; RESP 18; TEMP 97.7; O2SAT 98
[2016-06-22] MEDS: PIPERACIL-TAZO 4.5 GM PREMIX 100 ML IV SCH ×5 (00:27→23:22)
[2016-06-22 04:00] VITALS: BP 112/63; PULSE 74; RESP 17; TEMP 98.4; O2SAT 98
[2016-06-22] MEDS: PANTOPRAZOLE SODIUM 40 MG VIAL IV PUSH SCH ×2 (05:40→17:08)
[2016-06-22] MEDS: SUCRALFATE 1 GM TAB PO SCH ×4 (05:40→20:27)
[2016-06-22] MEDS: SODIUM CHLOR 0.9% 1000 ML INJ 1,000 ML IV SCH ×3 (05:40→20:26)
[2016-06-22] MEDS: LORazepam 0.5 MG TAB PO SCH ×3 (05:40→20:27)
[2016-06-22 06:59] LABS: AUTOMATED NEUTROPHIL # 7.9 TH/MM3 (1.8-7.7); BASOPHIL % 0.2 % (0.0-2.0); EOSINOPHIL # 0.4 TH/MM3 (0-0.4); EOSINOPHIL % 3.7 % (0.0-4.0); HEMATOCRIT 33.7 % (39.0-51.0); HEMO FLAGS DIFF FINAL; LYMPH % 11.1 % (9.0-44.0); LYMPHOCYTE # 1.2 TH/MM3 (1.0-4.8); MEAN CELL VOLUME 86.3 FL (80.0-100.0); MEAN CORPUSCULAR HEMOGLOBIN 28.8 PG (27.0-34.0); MEAN CORPUSCULAR HGB CONC 33.4 % (32.0-36.0); MONO % 9.6 % (0.0-8.0); NEUT % 75.4 % (16.0-70.0); PLATELET COUNT 220 TH/MM3 (150-450); RED CELL DISTRIBUTION WIDTH 12.8 % (11.6-17.2); WHITE BLOOD COUNT 10.5 TH/MM3 (4.0-11.0)
[2016-06-22 07:21] LABS: BICARBONATE 27.6 MEQ/L (21.0-32.0)
[2016-06-22 08:36] VITALS: BP 127/71; PULSE 85; RESP 18; TEMP 98.3; O2SAT 98
[2016-06-22 08:43] LABS: MAGNESIUM 2.2 MG/DL (1.5-2.5)
[2016-06-22] MEDS: SODIUM CHLORIDE 0.9% FLUSH 5 ML FLUSH FLUSH SCH ×2 (09:00→20:26)
[2016-06-22] MEDS: POTASSIUM CHLOR 20 MEQ PREMIX 100 ML IV SCH ×2 (09:00→11:00)
--- NOTE | 2016-06-22 10:32 | HHI.PR ---
Subjective Remarks This is a pleasant 30 y/o male with no significant past medical history, who came to ER with severe epigastric abdominal pain, multiple episodes of Nausea and vomit, denies fever, chills no nausea, vomit or diarrhea, Lactic acid was 1.7, Lipase 587, the patient states he drinks alcohol in excess, CT Abd/Pelvis w/ peripancreatic fatty tissue characteristic of mild pancreatitis w/ some inflammatory stranding down both paracolic gutters. he is stable refused EGD recommended by GI specialist today stable wants to go home, I am replacing Potassium now eating no Nausea or vomit no diarrhea. Objective Vital Signs Date Time Temp Pulse Resp B/P Pulse Ox O2 Delivery O2 Flow Rate FiO2 06/22/16 08:36 98.3 85 18 127/71 98 06/22/16 04:00 98.4 74 17 112/63 98 06/22/16 00:00 97.7 89 18 125/80 98 06/21/16 21:00 98.8 90 17 131/82 97 06/21/16 16:00 97.9 82 20 130/83 98 06/21/16 12:00 98.3 83 20 124/81 95 I/O 06/21/16 06/21/16 06/21/16 06/22/16 06/22/16 06/22/16 07:00 15:00 23:00 07:00 15:00 23:00 Intake Total 220 ml 720 ml 1770 ml 800 ml Output Total 500 ml 400 ml Balance -280 ml 720 ml 1370 ml 800 ml Intake Oral 220 ml 720 ml 600 ml 800 ml IV Total 1170 ml Output Urine Total 500 ml 400 ml # Voids 5 1 3 # Bowel Movements 0 3 0 3 Result Diagram: 06/22/16 0611 06/22/16 0611 Imaging Last Impressions Abdomen/Pelvis CT 06/19/16 0000 Signed Impressions: Service Date/Time: Sunday, June 19, 2016 03:41 - CONCLUSION: 1. Haziness of the peripancreatic fatty tissues characteristic of mild pancreatitis. There is some inflammatory stranding tracking down both paracolic gutters as well. 2. The appendix is clearly identified and is radiographically intact. Claude Prakash MD Procedures No procedures performed Other Results Laboratory Tests Test 06/19/16 06/19/16 06/20/16 06/22/16 03:00 05:50 08:53 06:11 Prothrombin Time 11.1 SEC Prothromb Time International 1.0 RATIO Ratio Activated Partial 27.7 SEC Thromboplast Time Lactic Acid Level 1.7 mmol/L Ethyl Alcohol Level LESS THAN 3 MG/DL Urine Color LIGHT-YELLOW Urine Turbidity CLEAR Urine pH 8.0 Urine Specific [place] 1.047 Urine Protein NEG mg/dL Urine Glucose (UA) NEG mg/dL Urine Ketones 40 mg/dL Urine Occult Blood NEG Urine Nitrite NEG Urine Bilirubin NEG Urine Urobilinogen LESS THAN 2.0 MG/DL Urine Leukocyte Esterase NEG Urine RBC 1 /hpf Urine WBC 1 /hpf Urine Mucus FEW /lpf Microscopic Urinalysis Comment CULT NOT INDICATED Total Bilirubin 1.1 MG/DL Aspartate Amino Transf 10 U/L (AST/SGOT) Alanine Aminotransferase 34 U/L (ALT/SGPT) Alkaline Phosphatase 77 U/L Total Protein 7.5 GM/DL Albumin 3.2 GM/DL White Blood Count 10.5 TH/MM3 Red Blood Count 3.90 MIL/MM3 Hemoglobin 11.3 GM/DL Hematocrit 33.7 % Mean Corpuscular Volume 86.3 FL Mean Corpuscular Hemoglobin 28.8 PG Mean Corpuscular Hemoglobin 33.4 % Concent Red Cell Distribution Width 12.8 % Platelet Count 220 TH/MM3 Mean Platelet Volume 8.2 FL Neutrophils (%) (Auto) 75.4 % Lymphocytes (%) (Auto) 11.1 % Monocytes (%) (Auto) 9.6 % Eosinophils (%) (Auto) 3.7 % Basophils (%) (Auto) 0.2 % Neutrophils # (Auto) 7.9 TH/MM3 Lymphocytes # (Auto) 1.2 TH/MM3 Monocytes # (Auto) 1.0 TH/MM3 Eosinophils # (Auto) 0.4 TH/MM3 Basophils # (Auto) 0.0 TH/MM3 CBC Comment DIFF FINAL Differential Comment Sodium Level 137 MEQ/L Potassium Level 3.0 MEQ/L Chloride Level 100 MEQ/L Carbon Dioxide Level 27.6 MEQ/L Anion Gap 9 MEQ/L Blood Urea Nitrogen 8 MG/DL Creatinine 0.74 MG/DL Estimat Glomerular Filtration 152 ML/MIN Rate Random Glucose 92 MG/DL Calcium Level 8.3 MG/DL Phosphorus Level 2.1 MG/DL Magnesium Level 2.2 MG/DL Lipase 168 U/L Objective Remarks GENERAL: Young male in no acute distress. HEENT: PERRLA, EOMI. No scleral icterus or conjunctival pallor. No lid lag or facial droop. CARDIOVASCULAR: Regular rate and rhythm. No obvious murmurs to auscultation. No chest tenderness to palpation. RESPIRATORY: No obvious rhonchi or wheezing. Clear to auscultation. Breath sounds equal bilaterally. GASTROINTESTINAL: Abdomen soft, Non tender improved distention. MUSCULOSKELETAL: Extremities without clubbing, cyanosis, or edema. No obvious deformities. NEUROLOGICAL: Awake, alert and oriented x4. No focal neurologic deficits. Moving both upper and lower extremities spontaneously. Medications and IVs Current Medications Medications (Trade) Dose Ordered Sig/Kathy Route Start Time Stop Time Status Last Admin IV Flush 2 ml 2 ml UNSCH PRN IVF 06/19/16 03:00 (Zosyn 4.5 Gm Premix) 100 ml @ 200 mls/hr Q6H IV 06/19/16 06:00 06/22/16 05:40 Pantoprazole Sodium 40 mg 40 mg Q12H IV PUSH 06/19/16 06:00 06/22/16 05:40 (NS 1000 ml Inj) 1,000 ml @ 100 mls/hr Q10H IV 06/19/16 05:07 06/22/16 05:40 (NS Flush) 2 ml UNSCH PRN FLUSH 06/19/16 05:15 (NS Flush) 2 ml BID FLUSH 06/19/16 09:00 06/21/16 09:00 (Zofran Inj) 4 mg Q6H PRN IVP 06/19/16 05:15 06/21/16 09:30 (Dulcolax Supp) 10 mg DAILY PRN [place] 06/19/16 05:15 (Tylenol) 650 mg Q6H PRN PO 06/19/16 05:15 06/20/16 16:47 (Morphine Inj) 2 mg Q3H PRN IV 06/19/16 05:15 06/21/16 11:57 (Roxicodone) 5 mg Q4H PRN PO 06/19/16 05:15 06/21/16 20:28 (Ativan) 0.5 mg Q8HR PO 06/20/16 22:00 06/22/16 05:40 (Lovenox Inj) 40 mg Q24H SQ 06/21/16 15:00 06/21/16 16:37 Sucralfate 1 gm 1 gm ACHS PO 06/21/16 16:00 06/22/16 05:40 Potassium Chloride 100 ml @ 50 mls/hr Q2H IV 06/22/16 09:00 06/22/16 12:59 (Potassium Phosphate Inj/NS Inj) 155 ml @ 38.75 mls/ hr ONCE ONCE IV 06/22/16 11:00 06/22/16 14:59 A/P Problem List: (1) Leukocytosis ICD Code: D72.829 (2) Pancreatitis ICD Code: K85.90 (3) Abdominal pain ICD Code: R10.9 Assessment and Plan 1. Acute Pancreatitis: Acute onset of Severe abdominal pain, Nausea and vomit , continue with Improvement of Lipase to 168, Leukocytosis on Zosyn for probable Colitis, he uses alcohol today improving Abdominal pain, eating and tolerating liquid diet, he refused EGD, discussed with patient will continue electrolyte replacement and IV fluids, follow laboratory and if stable will discharge Home. 2. Leukocytosis Improved. 3. Intractable nausea and vomit, Improved. 4. Electrolyte derangement replacing at this time, Hypokalemia and Hypophosphatemia. 5. Alcohol abuse strongly recommended to stop drinking behavior. DVT prophylaxis Lovenox Discharge Planning Expected later today or in am tomorrow. Problem Qualifiers (1) Pancreatitis: Qualified Code: K85.90 - Acute pancreatitis, unspecified complication status, unspecified pancreatitis type Errol Rainey MD Jun 22, 2016 10:32
[2016-06-22] MEDS ORDERED: POTASSIUM PHOSPHATE INJ 15 MMOL in SODIUM CHLORIDE 0.9% INJ 150 ML IV ONE (11:00)
--- NOTE | 2016-06-22 11:31 | HHI.GIFU ---
Subjective Remarks Patient is doing good today, no more abdomen pain, tolerating clears okay, moving his bowels, was scheduled to have EGD this morning, however, he is refusing now stating he is doing much better and would like to try real food and see how he does so he can go home. States this is a turning point for him and he will be more cautious from now on with the foods and drink choices ( Amelie Melo) Objective Vitals I&O Vital Signs Date Time Temp Pulse Resp B/P Pulse Ox O2 Delivery O2 Flow Rate FiO2 06/22/16 08:36 98.3 85 18 127/71 98 06/22/16 04:00 98.4 74 17 112/63 98 06/22/16 00:00 97.7 89 18 125/80 98 06/21/16 21:00 98.8 90 17 131/82 97 06/21/16 16:00 97.9 82 20 130/83 98 06/21/16 12:00 98.3 83 20 124/81 95 I/O 06/21/16 06/21/16 06/21/16 06/22/16 06/22/16 06/22/16 07:00 15:00 23:00 07:00 15:00 23:00 Intake Total 220 ml 720 ml 1770 ml 800 ml Output Total 500 ml 400 ml Balance -280 ml 720 ml 1370 ml 800 ml Intake Oral 220 ml 720 ml 600 ml 800 ml IV Total 1170 ml Output Urine Total 500 ml 400 ml # Voids 5 1 3 # Bowel Movements 0 3 0 3 Laboratory Laboratory Tests Test 06/22/16 06:11 White Blood Count 10.5 Red Blood Count 3.90 Hemoglobin 11.3 Hematocrit 33.7 Mean Corpuscular Volume 86.3 Mean Corpuscular Hemoglobin 28.8 Mean Corpuscular Hemoglobin 33.4 Concent Red Cell Distribution Width 12.8 Platelet Count 220 Mean Platelet Volume 8.2 Neutrophils (%) (Auto) 75.4 Lymphocytes (%) (Auto) 11.1 Monocytes (%) (Auto) 9.6 Eosinophils (%) (Auto) 3.7 Basophils (%) (Auto) 0.2 Neutrophils # (Auto) 7.9 Lymphocytes # (Auto) 1.2 Monocytes # (Auto) 1.0 Eosinophils # (Auto) 0.4 Basophils # (Auto) 0.0 CBC Comment DIFF FINAL Differential Comment Sodium Level 137 Potassium Level 3.0 Chloride Level 100 Carbon Dioxide Level 27.6 Anion Gap 9 Blood Urea Nitrogen 8 Creatinine 0.74 Estimat Glomerular Filtration 152 Rate Random Glucose 92 Calcium Level 8.3 Phosphorus Level 2.1 Magnesium Level 2.2 Lipase 168 Imaging Last Impressions Abdomen/Pelvis CT 06/19/16 0000 Signed Impressions: Service Date/Time: Sunday, June 19, 2016 03:41 - CONCLUSION: 1. Haziness of the peripancreatic fatty tissues characteristic of mild pancreatitis. There is some inflammatory stranding tracking down both paracolic gutters as well. 2. The appendix is clearly identified and is radiographically intact. Claude Prakash MD Physical Exam HEENT: normocephalic; atraumatic; no jaundice. Throat is clear. NECK: Neck is supple, no JVD, no lymphadenopathy. CHEST: Chest is clear to auscultation and percussion. CARDIAC: Regular rate and rhythm with no murmur gallop or rubs. ABDOMEN: Soft, nondistended, mild tenderness upon palpation ; no hepatosplenomegaly; bowel sounds are present in all four quadrants. EXTREMITIES: No clubbing, cyanosis, or edema. SKIN: Normal; no rash; no jaundice. 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 (Amelie Melo) Assessment and Plan Plan - Acute pancreatitis/first episode- Patient doing much better today, lipase WNL , WBC WNL, no more pain, refusing EGD, will advance diet and see how he does possibly alcohol related. Came in with severe epigastric abdominal pain associated with multiple episodes of nausea and vomiting started Sunday night after eating at [email or web address] [facility]. Initially, he thought this was gas pain, he tried to have a BM, but couldn't, then he tried to sleep it off, but started vomiting, and pain continued to escalate, wasn't able to tolerate any PO intake , so he came to the ED for further evaluation. Denies fever, chills, diarrhea or hematochezia. On arrival WBC 16.3. Chemistry essentially unremarkable. On admission Lactic Acid 1.7. Lipase 587. INR 1.0. Alcohol < 3. CT Abd/ Pelvis w/ peripancreatic fatty tissue characteristic of mild pancreatitis w/ some inflammatory stranding down both paracolic gutters. This is first episode. he drinks 4 times a week, this varies from 1-3 drinks at one time. Denies any herbal supplement, denies NSAIDs use. He admits to intermittent use of Marijuana. - Leukocytosis- Resolved , Zosyn - Alcohol use - he drinks 4 times a week, this varies from 1-3 drinks at one time.counseled on cessation Plan: - low fat diet - Refusing EGD, stating not having pain anymore - Lipase, CBC in am - IV hydration - Antiemetics - Pain meds - Supportive care - Patient seen and examined by Dr. Jama and myself and this note is written on his behalf. (Amelie Melo) Physician Comments patient is doing better, resolved pancreatitis, does not want any procedures, wants to go home, we will FU as needed. (Inderjit Jama MD) Amelie Melo Jun 22, 2016 11:31 Inderjit Jama MD Jun 22, 2016 14:52
[2016-06-22 12:15] VITALS: BP 122/82; PULSE 67; RESP 18; TEMP 98.5; O2SAT 100
[2016-06-22 16:10] VITALS: BP 133/84; PULSE 81; RESP 18; TEMP 98.4; O2SAT 98
[2016-06-22 20:36] VITALS: BP 110/71; PULSE 72; RESP 18; TEMP 99; O2SAT 99
[2016-06-23] VITALS: BP 113/63; PULSE 73; RESP 17; TEMP 98.2; O2SAT 98
[2016-06-23 04:00] VITALS: BP 116/63; PULSE 83; RESP 16; TEMP 98.6; O2SAT 96
[2016-06-23] MEDS: PIPERACIL-TAZO 4.5 GM PREMIX 100 ML IV SCH (05:48)
[2016-06-23] MEDS: LORazepam 0.5 MG TAB PO SCH (05:48)
[2016-06-23] MEDS: SUCRALFATE 1 GM TAB PO SCH (05:48)
[2016-06-23] MEDS: PANTOPRAZOLE SODIUM 40 MG VIAL IV PUSH SCH (05:48)
[2016-06-23] MEDS: SODIUM CHLOR 0.9% 1000 ML INJ 1,000 ML IV SCH (05:51)
[2016-06-23] MEDS: SODIUM CHLORIDE 0.9% FLUSH 5 ML FLUSH FLUSH SCH (08:08)
--- NOTE | 2016-06-23 08:08 | HHI.PR ---
Subjective Remarks This is a pleasant 30 y/o male with no significant past medical history, who came to ER with severe epigastric abdominal pain, multiple episodes of Nausea and vomit, denies fever, chills no nausea, vomit or diarrhea, Lactic acid was 1.7, Lipase 587, the patient states he drinks alcohol in excess, CT Abd/Pelvis w/ peripancreatic fatty tissue characteristic of mild pancreatitis w/ some inflammatory stranding down both paracolic gutters. Seen in his bedroom improved condition will go home, Improved Hypokalemia. No Nausea, vomit or diarrhea. Objective Vital Signs Date Time Temp Pulse Resp B/P Pulse Ox O2 Delivery O2 Flow Rate FiO2 06/23/16 04:00 98.6 83 16 116/63 96 06/23/16 00:00 98.2 73 17 113/63 98 06/22/16 20:36 99.0 72 18 110/71 99 06/22/16 16:10 98.4 81 18 133/84 98 06/22/16 12:15 98.5 67 18 122/82 100 06/22/16 08:36 98.3 85 18 127/71 98 I/O 06/22/16 06/22/16 06/22/16 06/23/16 06/23/16 06/23/16 07:00 15:00 23:00 07:00 15:00 23:00 Intake Total 800 ml 240 ml 250 ml 240 ml Output Total 400 ml Balance 800 ml 240 ml -150 ml 240 ml Intake Oral 800 ml 240 ml 250 ml 240 ml Output Urine Total 400 ml # Voids 3 4 1 # Bowel Movements 3 4 Result Diagram: 06/22/16 0611 06/22/16 1711 Imaging Last Impressions Abdomen/Pelvis CT 06/19/16 0000 Signed Impressions: Service Date/Time: Sunday, June 19, 2016 03:41 - CONCLUSION: 1. Haziness of the peripancreatic fatty tissues characteristic of mild pancreatitis. There is some inflammatory stranding tracking down both paracolic gutters as well. 2. The appendix is clearly identified and is radiographically intact. Claude Prakash MD Procedures No procedures performed Other Results Laboratory Tests Test 06/19/16 06/19/16 06/20/16 06/22/16 03:00 05:50 08:53 06:11 Prothrombin Time 11.1 SEC Prothromb Time International 1.0 RATIO Ratio Activated Partial 27.7 SEC Thromboplast Time Lactic Acid Level 1.7 mmol/L Ethyl Alcohol Level LESS THAN 3 MG/DL Urine Color LIGHT-YELLOW Urine Turbidity CLEAR Urine pH 8.0 Urine Specific [place] 1.047 Urine Protein NEG mg/dL Urine Glucose (UA) NEG mg/dL Urine Ketones 40 mg/dL Urine Occult Blood NEG Urine Nitrite NEG Urine Bilirubin NEG Urine Urobilinogen LESS THAN 2.0 MG/DL Urine Leukocyte Esterase NEG Urine RBC 1 /hpf Urine WBC 1 /hpf Urine Mucus FEW /lpf Microscopic Urinalysis Comment CULT NOT INDICATED Total Bilirubin 1.1 MG/DL Aspartate Amino Transf 10 U/L (AST/SGOT) Alanine Aminotransferase 34 U/L (ALT/SGPT) Alkaline Phosphatase 77 U/L Total Protein 7.5 GM/DL Albumin 3.2 GM/DL White Blood Count 10.5 TH/MM3 Red Blood Count 3.90 MIL/MM3 Hemoglobin 11.3 GM/DL Hematocrit 33.7 % Mean Corpuscular Volume 86.3 FL Mean Corpuscular Hemoglobin 28.8 PG Mean Corpuscular Hemoglobin 33.4 % Concent Red Cell Distribution Width 12.8 % Platelet Count 220 TH/MM3 Mean Platelet Volume 8.2 FL Neutrophils (%) (Auto) 75.4 % Lymphocytes (%) (Auto) 11.1 % Monocytes (%) (Auto) 9.6 % Eosinophils (%) (Auto) 3.7 % Basophils (%) (Auto) 0.2 % Neutrophils # (Auto) 7.9 TH/MM3 Lymphocytes # (Auto) 1.2 TH/MM3 Monocytes # (Auto) 1.0 TH/MM3 Eosinophils # (Auto) 0.4 TH/MM3 Basophils # (Auto) 0.0 TH/MM3 CBC Comment DIFF FINAL Differential Comment Sodium Level 137 MEQ/L Chloride Level 100 MEQ/L Carbon Dioxide Level 27.6 MEQ/L Anion Gap 9 MEQ/L Blood Urea Nitrogen 8 MG/DL Creatinine 0.74 MG/DL Estimat Glomerular Filtration 152 ML/MIN Rate Random Glucose 92 MG/DL Calcium Level 8.3 MG/DL Phosphorus Level 2.1 MG/DL Magnesium Level 2.2 MG/DL Lipase 168 U/L Test 06/22/16 17:11 Potassium Level 3.9 MEQ/L Objective Remarks GENERAL: Young male in no acute distress. HEENT: PERRLA, EOMI. No scleral icterus or conjunctival pallor. No lid lag or facial droop. CARDIOVASCULAR: Regular rate and rhythm. No obvious murmurs to auscultation. No chest tenderness to palpation. RESPIRATORY: No obvious rhonchi or wheezing. Clear to auscultation. Breath sounds equal bilaterally. GASTROINTESTINAL: Abdomen soft, Non tender improved distention. MUSCULOSKELETAL: Extremities without clubbing, cyanosis, or edema. No obvious deformities. NEUROLOGICAL: Awake, alert and oriented x4. No focal neurologic deficits. Moving both upper and lower extremities spontaneously. Medications and IVs Current Medications Medications (Trade) Dose Ordered Sig/Kathy Route Start Time Stop Time Status Last Admin IV Flush 2 ml 2 ml UNSCH PRN IVF 06/19/16 03:00 (Zosyn 4.5 Gm Premix) 100 ml @ 200 mls/hr Q6H IV 06/19/16 06:00 06/23/16 05:48 (Protonix Inj) 40 mg Q12H IV PUSH 06/19/16 06:00 06/23/16 05:48 (NS Flush) 2 ml UNSCH PRN FLUSH 06/19/16 05:15 (NS Flush) 2 ml BID FLUSH 06/19/16 09:00 06/22/16 20:26 (Zofran Inj) 4 mg Q6H PRN IVP 06/19/16 05:15 06/21/16 09:30 (Dulcolax Supp) 10 mg DAILY PRN LA 06/19/16 05:15 (Tylenol) 650 mg Q6H PRN PO 06/19/16 05:15 06/20/16 16:47 (Roxicodone) 5 mg Q4H PRN PO 06/19/16 05:15 06/21/16 20:28 (Ativan) 0.5 mg Q8HR PO 06/20/16 22:00 06/23/16 05:48 (Lovenox Inj) 40 mg Q24H SQ 06/21/16 15:00 06/21/16 16:37 Sucralfate 1 gm 1 gm ACHS PO 06/21/16 16:00 06/23/16 05:48 (NS 1000 ml Inj) 1,000 ml @ 100 mls/hr Q10H IV 06/22/16 10:45 06/23/16 05:51 A/P Problem List: (1) Leukocytosis ICD Code: D72.829 (2) Pancreatitis ICD Code: K85.90 (3) Abdominal pain ICD Code: R10.9 Assessment and Plan 1. Acute Pancreatitis: Acute onset of Severe abdominal pain, Nausea and vomit , continue with Improvement of Lipase to 168, Leukocytosis on Zosyn for probable Colitis, he uses alcohol today improving Abdominal pain, eating and tolerating liquid diet, he refused EGD, Patient states that improved and no Nausea,vomit or diarrhea, I prefer to send him home with antibiotics, will go on Augmentin and Cipro and follow with PCP. 2. Leukocytosis Improved. 3. Intractable nausea and vomit, Improved. 4. Electrolyte derangement replaced 5. Alcohol abuse strongly recommended to stop drinking behavior. DVT prophylaxis Lovenox Discussed with patient in the room he will be discharged home, strongly recommended to stop drinking behavior and follow with PCP. and GI specialist. Discharge Planning Discharge Home. Problem Qualifiers (1) Pancreatitis: Qualified Code: K85.90 - Acute pancreatitis, unspecified complication status, unspecified pancreatitis type Errol Rainey MD Jun 23, 2016 08:08
[2016-06-23] MEDS ORDERED: CIPR-9 PO (08:13)
[2016-06-23] MEDS ORDERED: AUGM875T PO (08:13)
[2016-06-23] MEDS ORDERED: PROT40TA PO (08:13)
--- NOTE | 2016-06-23 08:16 | HHI.DS ---
Discharge Summary Admission Date Jun 19, 2016 at 05:07 Discharge Date: Jun 23, 2016 Admitting Diagnosis Pancreatitis. (1) Pancreatitis ICD Code: K85.90 Diagnosis: Principal (2) Abdominal pain ICD Code: R10.9 Diagnosis: Principal (3) Leukocytosis ICD Code: D72.829 Diagnosis: Principal Procedures No procedures performed to the patient. Brief History - From Admission This is a 30-year-old male with no significant PMH who presents the ER with complaints of severe epigastric abdominal pain in addition to multiple episodes of nausea and vomiting starting last night. States pain has gotten progressively worse in the last 2-3 hours, unable to take PO. Denies fever, chills, cough or diarrhea. On arrival, BP 127/82, HR 66, O2 sat 99% on RA, Afebrile. WBC 16.3. Chemistry essentially unremarkable. Lactic Acid 1.7. Lipase 587. INR 1.0. Alcohol pending. CT Abd/Pelvis w/ peripancreatic fatty tissue characteristic of mild pancreatitis w/ some inflammatory stranding down both paracolic gutters. S/p Zofran/Morphine in ER w/ some improvement. CBC/BMP: 06/22/16 0611 06/23/16 0705 Significant Findings Laboratory Tests Test 06/20/16 06/21/16 06/22/16 06/23/16 08:53 07:10 06:11 07:05 White Blood Count 14.6 TH/MM3 17.7 TH/MM3 (4.0-11.0) (4.0-11.0) Red Blood Count 4.47 MIL/MM3 3.90 MIL/MM3 (4.50-5.90) (4.50-5.90) Hemoglobin 12.8 GM/DL 12.9 GM/DL 11.3 GM/DL (13.0-17.0) (13.0-17.0) (13.0-17.0) Hematocrit 38.3 % 38.8 % 33.7 % (39.0-51.0) (39.0-51.0) (39.0-51.0) Neutrophils (%) (Auto) 87.8 % 87.4 % 75.4 % (16.0-70.0) (16.0-70.0) (16.0-70.0) Lymphocytes (%) (Auto) 4.1 % 4.1 % (9.0-44.0) (9.0-44.0) Neutrophils # (Auto) 12.8 TH/MM3 15.4 TH/MM3 7.9 TH/MM3 (1.8-7.7) (1.8-7.7) (1.8-7.7) Lymphocytes # (Auto) 0.6 TH/MM3 0.7 TH/MM3 (1.0-4.8) (1.0-4.8) Monocytes # (Auto) 1.1 TH/MM3 1.4 TH/MM3 1.0 TH/MM3 (0-0.9) (0-0.9) (0-0.9) Sodium Level 135 MEQ/L 134 MEQ/L (136-145) (136-145) Blood Urea Nitrogen 5 MG/DL (7-18) Calcium Level 8.4 MG/DL 8.3 MG/DL (8.5-10.1) (8.5-10.1) Total Bilirubin 1.1 MG/DL (0.2-1.0) Aspartate Amino Transf 10 U/L (15-37) (AST/SGOT) Albumin 3.2 GM/DL (3.4-5.0) Random Glucose 116 MG/DL (74-106) Monocytes (%) (Auto) 9.6 % (0.0-8.0) Potassium Level 3.0 MEQ/L 3.3 MEQ/L (3.5-5.1) (3.5-5.1) Phosphorus Level 2.1 MG/DL (2.5-4.9) Imaging Last Impressions Abdomen/Pelvis CT 06/19/16 0000 Signed Impressions: Service Date/Time: Sunday, June 19, 2016 03:41 - CONCLUSION: 1. Haziness of the peripancreatic fatty tissues characteristic of mild pancreatitis. There is some inflammatory stranding tracking down both paracolic gutters as well. 2. The appendix is clearly identified and is radiographically intact. Claude Prakash MD PE at Discharge GENERAL: Young male in no acute distress. HEENT: PERRLA, EOMI. No scleral icterus or conjunctival pallor. No lid lag or facial droop. CARDIOVASCULAR: Regular rate and rhythm. No obvious murmurs to auscultation. No chest tenderness to palpation. RESPIRATORY: No obvious rhonchi or wheezing. Clear to auscultation. Breath sounds equal bilaterally. GASTROINTESTINAL: Abdomen soft, Non tender improved distention. MUSCULOSKELETAL: Extremities without clubbing, cyanosis, or edema. No obvious deformities. NEUROLOGICAL: Awake, alert and oriented x4. No focal neurologic deficits. Moving both upper and lower extremities spontaneously. Hospital Course This is a pleasant 30 y/o male with no significant past medical history, who came to ER with severe epigastric abdominal pain, multiple episodes of Nausea and vomit, denies fever, chills no nausea, vomit or diarrhea, Lactic acid was 1.7, Lipase 587, the patient states he drinks alcohol in excess, CT Abd/Pelvis w/ peripancreatic fatty tissue characteristic of mild pancreatitis w/ some inflammatory stranding down both paracolic gutters. Seen in his bedroom improved condition will go home, Improved Hypokalemia. No Nausea, vomit or diarrhea. Assessment and Plan 1. Acute Pancreatitis: Acute onset of Severe abdominal pain, Nausea and vomit , continue with Improvement of Lipase to 168, Leukocytosis on Zosyn for probable Colitis, he uses alcohol today improving Abdominal pain, eating and tolerating liquid diet, he refused EGD, Patient states that improved and no Nausea,vomit or diarrhea, I prefer to send him home with antibiotics, will go on Augmentin and Cipro and follow with PCP. 2. Leukocytosis Improved. 3. Intractable nausea and vomit, Improved. 4. Electrolyte derangement replaced and will continue Potassium at home for 10 days. 5. Alcohol abuse strongly recommended to stop drinking behavior. DVT prophylaxis Lovenox Discussed with patient in the room he will be discharged home, strongly recommended to stop drinking behavior and follow with PCP. and GI specialist. Discharge Planning Discharge Home. Pt Condition on Discharge: Good Discharge Disposition: Discharge Home Discharge Time: > 30 minutes Discharge Instructions DIET: Follow Instructions for: As Tolerated, No Restrictions Activities you can perform: Regular-No Restrictions Errol Rainey MD Jun 23, 2016 08:16
[2016-06-23] MEDS ORDERED: POTA-163 PO (08:18)
[2016-06-23 08:22] VITALS: BP 117/69; PULSE 69; RESP 18; TEMP 98.2; O2SAT 100
[2016-06-23] MEDS ORDERED: POTASSIUM CHLORIDE 20 MEQ CONTROLLED RELEASE TAB PO ONE (09:00)
== END 2016-06-23 09:34 | disposition home or self-care (01) | DRG 440 ==
LOC: NEPC 02:42 → NEDH 05:07 → N04B 06:19
PROVIDERS: ADMIT Internal Medicine; ATTEND Internal Medicine
DX: K85.90 Acute pancreatitis without necrosis or infection, unspecified (principal); E83.39 Other disorders of phosphorus metabolism; E87.6 Hypokalemia; F12.90 Cannabis use, unspecified, uncomplicated; Z91.013 Allergy to seafood; F10.10 Alcohol abuse, uncomplicated; K52.9 Noninfective gastroenteritis and colitis, unspecified; Z53.29 Procedure and treatment not carried out because of patient's decision for other reasons
CPT/HCPCS: 74177; 80048; 80053; 80320; 81001; 83605; 83690; 83735; 84100; 84132; 85025; 85610; 85730; 96361; 96374; 96375; C9113; J1650; J2270; J2405; J2543; J3480; J7030; Q9967